=== PATIENT | female | born 1985 | race Caucasian/White ===

== ENCOUNTER 2018-06-15 22:48 | Emergency (ER) | payer OTHER ==
[2018-06-16 01:12] LABS: HIV 1&2 ANTIBODY NEGATIVE (NEGATIVE)
== END 2018-06-16 00:24 | disposition home or self-care (01) ==
LOC: FTE 06-16 00:24
DX: Z11.4 Encounter for screening for human immunodeficiency virus [HIV] (principal); J45.909 Unspecified asthma, uncomplicated; F17.210 Nicotine dependence, cigarettes, uncomplicated
CPT/HCPCS: 86703; 99283